=== PATIENT | female | born 2000 | race Two or more races ===

== ENCOUNTER 2025-03-03 01:05 | Emergency (ER) | payer MEDICAID, SELFPAY ==
[2025-03-03] VITALS (14 sets, daily range): BP systolic 107–131; BP diastolic 59–78; PULSE 66–92; RESP 7–20; TEMP 36.4–37.2; O2SAT 88–99; BMI 36.5
--- NOTE | 2025-03-03 02:21 | PD.EDRME ---
Rapid Medical Screening Exam E Arrival date/time: 03/03/25 01:05 24-year-old female presents to ED for complaint of abdominal pain x 2 days also complains of pressure to the area above her bladder and pressure upon urination. Denies classic signs of UTI. Also complains of vomiting up to 3 times per day x 2 days. Denies fever. Chief Complaint: Abdominal Pain Time Seen by Provider: 03/03/25 01:19 Vital signs: Vital Signs Temperature 98.9 F 03/03/25 02:04 Pulse Rate 90 03/03/25 02:04 Respiratory Rate 18 03/03/25 02:04 Blood Pressure 108/59 L 03/03/25 02:04 Pulse Oximetry (%) 98 03/03/25 02:04 Oxygen Delivery Method Room Air 03/03/25 02:04 Room air 98% normal Vital signs reviewed by provider: Yes
[2025-03-03] MEDS: KETOROLAC INJ 60 MG/2 ML VIAL 30 MG IM (02:36)
[2025-03-03 02:47] LABS: Basophils # (Auto) 0.1 Thou/mm3 (0.0-0.2); Basophils % (Auto) 0 % (0-2.5); Eosinophils # (Auto) 0.2 Thou/mm3 (0.0-0.5); Eosinophils % (Auto) 1 % (0-10); Hematocrit 38.5 % (36.0-46.0); Immature Granulocytes % (Auto) 0 % (0-0); Immature Granulocytes Auto 0.07 Thou/mm3 (0.00-0.00); Lymphocytes # (Auto) 1.9 Thou/mm3 (1.0-4.8); Lymphocytes % (Auto) 12 % (10-50); Mean Corpuscular HGB Conc 33.8 g/dl (31.0-37.0); Mean Corpuscular Hemoglobin 28.8 pg (25.0-35.0); Mean Corpuscular Volume 85 fL (80-100); Monocytes # (Auto) 0.9 Thou/mm3 (0.0-0.8); Monocytes % (Auto) 5 % (0-12); Neutrophils # (Auto) 12.6 Thou/mm3 (1.8-7.7); Neutrophils % (Auto) 81 % (37-80); Nucleated Red Blood Cell % 0 /100 WBC (0); Platelet Count 398 Thou/mm3 (140-440); RDW Standard Deviation 42.3 fL (36.4-46.3); Red Blood Count 4.52 Miln/mm3 (4.00-5.20); White Blood Count 15.7 Thou/mm3 (3.6-11.0)
[2025-03-03] MEDS: ONDANSETRON ODT 4 MG TABRAP PO (03:15)
[2025-03-03 03:17] LABS: Alanine Aminotransferase 28 U/L (10-49); Albumin/Globulin Ratio 1.9 (1.2-2.2); Alkaline Phosphatase 104 U/L (46-116); Anion Gap 8 (7-16); Aspartate Amino Transferase 22 U/L (0-34); BUN/Creatinine Ratio 11 Ratio (12-20); Bilirubin,Total 0.4 mg/dL (0.3-1.2); Blood Urea Nitrogen 8 mg/dL (9-23); Calcium 8.9 mg/dL (8.3-10.6); Calcium (Corrected) 8.9 mg/dL (8.5-10.1); Carbon Dioxide 27.7 mMol/L (20.0-31.0); Chloride 105 mMol/L (98-107); Creatinine (Component) 0.7 mg/dL (0.6-1.3); Estimated Creatinine Clearance 136.9 mL/min (>60); Globulin 2.6 gm/dL (2.3-3.5); Glucose 117 mg/dL (74-106); Lipase 34 U/L (12-53); Osmolality,Calculated 280 (275-295); Potassium 3.6 mMol/L (3.4-5.1); Sodium 141 mMol/L (136-145); Total Protein 7.6 gm/dL (5.7-8.2); eGFR > 60 See Note
[2025-03-03 03:35] LABS: Collection Type, Urine Clean Catch; Squamous Epithelial Cell,Urine 0 /hpf (0-5)
[2025-03-03 03:51] LABS: Bilirubin,Urine Negative (Negative); Blood,Urine Trace (Negative); Clarity,Urine Clear (Clear/Hazy); Color,Urine Lt-Yellow (Lt Yel-Yel); Glucose, Urine Negative (Negative); Ketones,Urine Negative (Negative); Leukocyte Esterase,Urine Positive (Negative); Nitrite,Urine Negative (Negative); Protein,Urine Negative (Neg - Trace); RBC,Urine 1 /hpf (0-3); Specific Gravity,Urine 1.008 (1.001-1.035); Urobilinogen,Urine Negative mg/dL (0.0-1.0); WBC,Urine 1 /hpf (0-5)
[2025-03-03 03:55] LABS: HCG Qualitative,Urine Negative
--- NOTE | 2025-03-03 04:44 | PD.EDABDPN ---
ED Abdominal Pain RME/HPI General Chief Complaint: Abdominal Pain Stated complaint: ABD PAIN Time seen by provider: 03/03/25 01:19 Arrival date/time: 03/03/25 01:05 RME / HPI RME / HPI narrative: 03/03/25 01:05 24-year-old female presents to ED for complaint of abdominal pain x 2 days also complains of pressure to the area above her bladder and pressure upon urination. Denies classic signs of UTI. Also complains of vomiting up to 3 times per day x [address] Wilcox?s Main ED Evaluation: 24yo female with no significant past medical history presents to the ED for a chief complaint of lower mid abdominal pain x yesterday. Patient states she started having lower mid abdominal pain at 1300 yesterday without any radiation or migration. Patient reports associated N/V. She denies any fever, chills, constipation, diarrhea or any other associated symptoms. LMP was last month, reporting she is irregular. Denies any previous abdominal surgeries. NKA. Related Data Previous Rx's ?Medication ?Instructions ?Recorded albuterol sulfate 90 mcg/actuation 1 inh inhalation QID PRN shortness 11/29/21 breath activated powder inhaler of breath #1 ea dexamethasone 6 mg tablet 6 mg PO QDAY #10 tabs 11/29/21 Allergies Allergy/AdvReac Type Severity Reaction Status Date / Time No Known Allergies Allergy Verified 03/03/25 01:19 Review of Systems Review of Systems Systems Reviewed: All systems reviewed, normal except as documented Past Medical History Past Medical History CARDIAC: Negative Congestive Heart Failure RESPIRATORY: Negative Chronic Obstructive Pulmonary Disease (COPD) GENITOURINARY: Negative Renal Disease ENDOCRINE: Negative Diabetes Mellitus Type 1 or Diabetes Mellitus Type 2 Surgical History SURGICAL: Positive Cardiac Surgery (at 2 months of age) Social History SMOKING STATUS: Current some day smoker ED Exam Narrative Physical exam: GENERAL APPEARANCE: AxOx4, generally well-appearing, no acute distress. HEENT: NC, AT. MMM. EOMI, clear conjunctiva, oropharynx clear. NECK: Supple without lymphadenopathy. No stiffness or restricted ROM. HEART: Normal rate and regular rhythm, normal S1/S1, no m/r/g LUNGS: CTAB, moving air well. No crackles or wheezes are heard. ABDOMEN: Soft, diffuse abdominal pain, McBurney's point tenderness, nondistended with good bowel sounds heard. BACK: No midline C/T/L spine pain or deformity, No CVAT, no obvious deformity. EXTREMITIES: Without cyanosis, clubbing or edema. MUSCULOSKELETAL: FROM of all major joints, no chest tenderness NEUROLOGICAL: Grossly nonfocal. Alert and oriented, moving all 4 extremities. CN not formally tested but appear grossly intact. Observed to ambulate with normal gait. Skin: Warm and dry without any rash. Course Quality Measures none Orders Category Date Time Status CT Screening NOW Care 03/03/25 04:[address] abdomen pelvis w con Stat Exams 03/03/25 04:45 Ordered CBC Stat Lab 03/03/25 02:36 Completed Comprehensive Metabolic Panel Stat Lab 03/03/25 02:36 Completed HCG Qualitative,Urine Stat Lab 03/03/25 02:48 Completed Lipase Stat Lab 03/03/25 02:36 Completed Urinalysis Stat Lab 03/03/25 02:48 Completed Ketorolac Inj [Toradol Inj] Med 03/03/25 02:23 Discontinued 30 mg IM X1 ONE Ondansetron Inj [Zofran Inj] Med 03/03/25 02:23 Discontinued 4 mg IV X1 ONE Ondansetron Odt [Zofran Odt] Med 03/03/25 02:46 Discontinued 4 mg PO X1 ONE Vital Signs Vital signs: Vital Signs Temperature 98.9 F 03/03/25 02:04 Pulse Rate 90 03/03/25 02:04 Respiratory Rate 18 03/03/25 02:04 Blood Pressure 108/59 L 03/03/25 02:04 Pulse Oximetry (%) 98 03/03/25 02:04 Oxygen Delivery Method Room Air 03/03/25 02:04 Abdominal Pain MDM MDM Narrative MDM Narrative:: Scribe Attestation: 03/03/25 Katerine Ching am scribing for and in the presence of Dr. Wilcox. Patient data External records reviewed:: [facility] previous records (Per chart review, patient was seen here on 07/21/24 for abdominal pain.) Clinical information provided by:: patient Social determinants that could affect healthcare access:: none Patient has the following chronic illnesses:: none How is presenting disease/condition affected by chronic disease/condition?: no chronic disease Evaluation data The following diagnostics were reviewed and interpreted by me:: lab results and radiology exam(s) Lab and/or radiology exams considered but not ordered:: none Interpretation Summary: WBC count is elevated at 15.7, CMP is normal, Lipase is normal, UA is unremarkable, HCG is negative. CT abdomen pelvis is pending at signout. Medications / Prescriptions Medications or Prescriptions considered but not ordered:: none Medication administrations:: Medication Administration History Discontinued Medications Ketorolac Tromethamine (Ketorolac Inj 60 Mg/2 Ml Vial) 30 mg IM X1 ONE Stop: 03/03/25 02:24 Last Admin: 03/03/25 02:36 Dose: 30 mg Documented By: MARILIA Ondansetron HCl (Ondansetron Inj 2 Mg/Ml Inj 2 Ml) 4 mg IV X1 ONE; Protocol Stop: 03/03/25 02:24 Last Admin: 03/03/25 03:16 Dose: Not Given Documented By: BENY Non-Admin Reason: Cancelled by Provider Ondansetron HCl (Ondansetron Odt 4 Mg Tabrap) 4 mg PO X1 ONE; Protocol Stop: 03/03/25 02:47 Last Admin: 03/03/25 03:15 Dose: 4 mg Documented By: BENY see above Consultations Consultation(s) initiated? (list below): No Diagnosis Differential diagnosis abdominal pain: acute appendicitis and other (colitis, gastritis) Most likely diagnosis given after review of the tests above:: final dx pending at sign out. Admission Indicated Admission indicated?: not indicated Admission Request Was there a request for admission?: No Disposition Plan Disposition Plan: Discharge Discharge Attestation Discharge Attestation: The patient and all family members were given an opportunity to ask questions and understood the discharge instructions. Discharge instructions specifically effects, indications for sooner follow up or return to the emergency department, and the expected course of current diagnosis. Patient condition: Stable Discharge Plan Prescriptions/Referrals Prescriptions/Med Rec: No Action dexamethasone 6 mg tablet 6 mg PO QDAY Qty: 10 0RF albuterol sulfate 90 mcg/actuation aerosol powdr breath activated 1 inh inhalation QID PRN (Reason: shortness of breath) Qty: 1 0RF Referrals: Maxi Romero MD [Primary Care Provider] - In 1 week Problem List Clinical Impression: Abdominal pain Patient/Caregiver Discharge Instructions Print Language: Faroese
--- NOTE | 2025-03-03 04:45 | XR_ITS ---
Examination: CT abdomen with intravenous contrast CT pelvis with intravenous contrast 2-D coronal reconstructions 2-D sagittal reconstructions Date and time of exam:March 23, 2025 0620 hours INDICATIONS: Onset right lower abdominal pain beginning 2 days ago. CTDI: vol (mGy) 11.5 DLP: (mGycm) 04/05/2028 Technique: Multiple axial sections of the abdomen and pelvis have been obtained. 64 slice high-resolution scanner used. 3 mm axial sections have been obtained, post intravenous injection 60 cc [id number] 2-D sagittal, coronal reconstructions obtained. Low dose protocols were performed. One or more of the following dose reduction techniques were used; automated exposure control, adjustment of the mA and/or KV according to patient size, use of iterative reconstruction technique. Findings: No focal liver or splenic lesions No gallstones No pancreatic or adrenal mass No renal or ureteral calculi, no hydronephrosis Aorta normal size Normal appendix, coronal image 82 No pericecal inflammatory change No bowel obstruction No diverticulitis Anteverted uterus Prominent right ovary with probable multiple right ovarian follicles Trace free fluid in the pelvis Osseous structures intact IMPRESSION: Normal appendix Prominent right ovary with probable multiple right ovarian follicles, recommend pelvic sonography follow-up
--- NOTE | 2025-03-03 07:13 | EDNOTE_ITS ---
Emergency Room Addendum Addendum Narrative: 0600: Care assumed from Dr. Wilcox, the previous shift emergency physician. Past medical, surgical, social and family history reviewed. Vitals and home medications reviewed. I will assume the care of the patient at this time, pending CT abdomen pelvis and final disposition. Please refer to the emergency department record for history and examination from initial visit.?The following addendum documentation note is intended to reflect any pending information, findings, or radiology results not included in the patient?s initial chart. EMS notes reviewed by me. Nursing notes reviewed by me. Vital signs reviewed by me. [place] medical records reviewed by me. 0915: We reviewed all the results, analysis, and treatment plans. Patient is amenable to discharge. Strict return precautions were outlined. Patient was discharged in stable condition. RADIOLOGY Ordering Physician: Dominic Wilcox MD Date of Service: 03/03/25 Procedure(s): CT abdomen pelvis w con Accession Number(s): [id number] cc: Maxi Romero MD; Dominic Wilcox MD; Hunter Lane MD~ Examination: CT abdomen with intravenous contrast CT pelvis with intravenous contrast 2-D coronal reconstructions 2-D sagittal reconstructions Date and time of exam:March 23, 2025 0620 hours INDICATIONS: Onset right lower abdominal pain beginning 2 days ago. CTDI: vol (mGy) 11.5 DLP: (mGycm) 04/05/2028 Technique: Multiple axial sections of the abdomen and pelvis have been obtained. 64 slice high-resolution scanner used. 3 mm axial sections have been obtained, post intravenous injection 60 cc [id number] 2-D sagittal, coronal reconstructions obtained. Low dose protocols were performed. One or more of the following dose reduction techniques were used; automated exposure control, adjustment of the mA and/or KV according to patient size, use of iterative reconstruction technique. Findings: No focal liver or splenic lesions No gallstones No pancreatic or adrenal mass No renal or ureteral calculi, no hydronephrosis Aorta normal size Normal appendix, coronal image 82 No pericecal inflammatory change No bowel obstruction No diverticulitis Anteverted uterus Prominent right ovary with probable multiple right ovarian follicles Trace free fluid in the pelvis Osseous structures intact IMPRESSION: Normal appendix Prominent right ovary with probable multiple right ovarian follicles, recommend pelvic sonography follow-up Dictated By:Hunter Lane MD Signed By:<Electronically signed by Hunter Lane MD in [place]>03/03/25 0723
== END 2025-03-03 11:17 | disposition home or self-care (01) ==
LOC: SERX 02:27
PROVIDERS: Physician Assistant; Emergency Provider Emergency Medicine; PCP Family Medicine
DX: R10.30 Lower abdominal pain, unspecified (principal)
CPT/HCPCS: 36415; 74177; 80053; 81001; 81025; 83690; 85025; 96372; 99285; A4649; J1885; Q0162; Q9967